=== PATIENT | female | born 1955 | race Two or more races ===

== ENCOUNTER 2023-10-25 14:51 | Emergency (ER) | payer MEDICARE, MEDICAID ==
[~2023-10-25] VITALS: Ht 162.6 cm; Wt 91.0 kg
[2023-10-25 15:18] VITALS: BP 154/63; PULSE 54; RESP 22; TEMP 98.2; O2SAT 93
== END 2023-10-25 18:50 | disposition home or self-care (01) ==
LOC: ER 14:51
DX: R68.89 Other general symptoms and signs (principal); E11.9 Type 2 diabetes mellitus without complications; I10 Essential (primary) hypertension
CPT/HCPCS: 99281